=== PATIENT | female | born 1985 | race American Indian/Alaskan Native ===

== ENCOUNTER 2017-11-29 09:18 | Emergency (ER) | payer SELFPAY ==
[2017-11-29 10:01] LABS: Bilirubin,Urine NEG (Negative); Blood,Urine LG (Negative); Mucus,Urine 3+ /HPF
[2017-11-29 10:03] LABS: Color,Urine Yellow (Yellow); RBC,Urine > 182.0 /HPF (0.0-6.0)
[2017-11-29 10:14] LABS: Basophils % (Auto) 0.3 % (0.0-1.8); Eosinophils # (Auto) 0.2 K/mm3 (0.0-0.4); Eosinophils % (Auto) 2.4 % (0.0-4.3); Hematocrit 41.5 % (30.3-42.9); Hemoglobin 13.8 gm/dl (10.1-14.3); Lymphocytes # (Auto) 2.8 K/mm3 (1.2-5.4); Lymphocytes % (Auto) 31.4 % (13.4-35.0); Mean Corpuscular HGB Conc 33 % (30-34); Mean Corpuscular Hemoglobin 32 pg (28-32); Mean Corpuscular Volume 96 fl (79-97); Monocytes # (Auto) 0.9 K/mm3 (0.0-0.8); Monocytes % (Auto) 10.6 % (0.0-7.3); Platelet Count 332 K/mm3 (140-440); Red Blood Count 4.32 M/mm3 (3.65-5.03); Red Cell Distribution Width 12.7 % (13.2-15.2)
--- NOTE | 2017-11-29 10:56 | Emergency Department Report ---
Chief Complaint: Vaginal Bleeding Stated Complaint: VAGINAL BLEEDING/ Time Seen by Provider: 11/29/17 10:41 - HPI History of Present Illness: 31-year-old -[place] female presents to the emergency department with complaint of pelvic pain and vaginal bleeding and the patient believe she is . She took a home test in July that was positive. She says that she has a history of previous miscarriages and ectopics. She has been on vitamins. She did not have any [facility]IST follow-up between then and now. She denies any fever, vomiting, dysuria, vaginal discharge. No recent travel or sick contacts at home. - ROS Review of Systems: Positive for vaginal bleeding, pelvic discomfort Negative for nausea, vomiting, dysuria, vaginal discharge, fever - Exam Vital Signs: Vital Signs 11/29/17 09:20 Temperature 98.2 F Pulse Rate 80 Respiratory 18 Rate Blood Pressure 112/70 O2 Sat by Pulse 100 Oximetry Physical Exam: Heart and lungs sounds are normal to auscultation. There is some reproducible lower abdominal and pelvic discomfort to palpation. No guarding. MSE screening note: Focused history and physical exam performed. Due to findings the following was ordered: The patient will have a pelvic ultrasound. Labs have been reviewed and she has a negative beta hCG quantitative level. ED Medical Decision Making - Lab Data Result diagrams: 11/29/17 09:58 ED Disposition for MSE Condition: Stable Referrals: PRIMARY CARE [Primary Care Provider] - 3-5 Days
--- NOTE | 2017-11-29 11:48 | Emergency Department Report ---
ED HPI - General Chief complaint: Vaginal Bleeding Stated complaint: VAGINAL BLEEDING/ Time Seen by Provider: 11/29/17 10:41 Source: patient Mode of arrival: Ambulatory Limitations: No Limitations - History of Present Illness Initial comments: This is a 31-year-old female nontoxic, well nourished in appearance, no acute signs of distress presents to the ED with c/o of vaginal bleeding x1 day. Patient stated she had a positive test on 06/2017 and then had some minimal vaginal spotting on 07/2017. Patient stated yesterday she noticed vaginal bleeding today. Patient denies following up with BLOCK TRIMMER and stated has been taking vitamins. Patient stated has history of etopic of had right fallopian tube removed. Patient also stated has pelvic cramping that is intermittent. Patient denies any nausea, vomiting, chest pain, shortness of breathe, fever, chills, headache, stiff neck, numbness, tingling. Patient denies any urinary symptoms. Patient denies any allergies. PMH includes asthma. MD Complaint: vaginal bleeding -: days(s) (1) Location: pelvis Radiation: none Severity: mild Severity scale (0 -10): 3 Quality: cramping Consistency: intermittent, now resolved Improves with: none Worsens with: none Associated symptoms: vaginal bleeding. denies: nausea/vomiting, vaginal discharge, abdominal pain, dysuria, headache, vision changes, malaise, dysparuenia, rash, seizure, shortness of breath, syncope, weakness Vaginal bleeding: light Pre- care: none - Related Data Previous Rx's Medication Instructions Recorded Last Taken Type HYDROcodone/APAP 5-325 [[place] 1 each PO Q8HR PRN #20 tablet 05/27/14 Unknown Rx 5/325] Naproxen [Naprosyn TAB] 500 mg PO BID PRN #30 tablet 05/27/14 Unknown Rx Ibuprofen [Motrin] 600 mg PO Q8H PRN #30 tablet 11/29/17 Unknown Rx Allergies Allergy/AdvReac Type Severity Reaction Status Date / Time latex Allergy Rash Verified 11/29/17 09:28 ED Review of Systems ROS: Stated complaint: VAGINAL BLEEDING/ Other details as noted in HPI Constitutional: denies: chills, fever Eyes: denies: eye pain, eye discharge, vision change ENT: denies: ear pain, throat pain Respiratory: denies: cough, shortness of breath, wheezing Cardiovascular: denies: chest pain, palpitations Endocrine: no symptoms reported Gastrointestinal: abdominal pain. denies: nausea, diarrhea Genitourinary: denies: urgency, dysuria, discharge Musculoskeletal: denies: back pain, joint swelling, arthralgia Skin: denies: rash, lesions Neurological: denies: headache, weakness, paresthesias Psychiatric: denies: anxiety, depression Hematological/Lymphatic: denies: easy bleeding, easy bruising ED Past Medical Hx - Past Medical History Previous Medical History?: Yes Additional medical history: miscarriage, ectopic - Surgical History Past Surgical History?: Yes Additional Surgical History: ectopic - Social History Smoking Status: Current Some Day Smoker Substance Use Type: None - Medications Home Medications: Home Medications Medication Instructions Recorded Confirmed Last Taken Type HYDROcodone/APAP 5-325 [[place] 1 each PO Q8HR PRN #20 tablet 05/27/14 Unknown Rx 5/325] Naproxen [Naprosyn TAB] 500 mg PO BID PRN #30 tablet 05/27/14 Unknown Rx Ibuprofen [Motrin] 600 mg PO Q8H PRN #30 tablet 11/29/17 Unknown Rx ED Physical Exam - General Limitations: No Limitations General appearance: alert, in no apparent distress - Head Head exam: Present: atraumatic, normocephalic - Eye Eye exam: Present: normal appearance Pupils: Present: normal accommodation - ENT ENT exam: Present: normal exam, mucous membranes moist - Neck Neck exam: Present: normal inspection, full ROM. Absent: tenderness, meningismus, lymphadenopathy - Respiratory Respiratory exam: Present: normal lung sounds bilaterally. Absent: respiratory distress, wheezes, rales, rhonchi, stridor, chest wall tenderness, accessory muscle use, decreased breath sounds, prolonged expiratory - Cardiovascular Cardiovascular Exam: Present: regular rate, normal rhythm, normal heart sounds. Absent: bradycardia, tachycardia, irregular rhythm, systolic murmur, diastolic murmur, rubs, gallop - GI/Abdominal GI/Abdominal exam: Present: soft, normal bowel sounds. Absent: distended, tenderness, guarding, rebound, rigid, diminished bowel sounds - Expanded GI/Abdominal Exam Expanded GI/Abdominal exam: Absent: psoas sign, obturator sign, heel tap sign, Asher's sign, Rovsing's sign, tenderness at Mcburney's Point, ascites - Rectal Rectal exam: Present: deferred - Extremities Exam Extremities exam: Present: normal inspection, full ROM, normal capillary refill. Absent: tenderness - Back Exam Back exam: Present: normal inspection, full ROM. Absent: tenderness, CVA tenderness (R), CVA tenderness (L), muscle spasm, paraspinal tenderness, vertebral tenderness, rash noted - Neurological Exam Neurological exam: Present: alert, oriented X3, normal gait - Psychiatric Psychiatric exam: Present: normal affect, normal mood - Skin Skin exam: Present: warm, dry, intact, normal color. Absent: rash ED Course Vital Signs 11/29/17 11/29/17 09:20 11:02 Temperature 98.2 F Pulse Rate 80 Respiratory 18 16 Rate Blood Pressure 112/70 O2 Sat by Pulse 100 Oximetry - Reevaluation(s) Reevaluation #1: 11/29/17 11:48 Patient is speaking in full sentences with no signs of distress noted. - Consultations Consultation #1: Patient has been consulted with Dr. Olivares about patient history, physical exam, and labs/US report and examined and screened patient and agrees to ED plan of care and discharge plan of care. ED Medical Decision Making - Lab Data Result diagrams: 11/29/17 09:58 - Medical Decision Making This is a 31-year-old female presents with miscarriage. Patient is stable and was examined by me. Normal abdominal exam. US OB obtained and dictated by the radiologist. Quantative serum test obtained. Patient notified of the US of pelvic report with no questions noted by the patient. Patient refused US transvaginal even though I educated and instructed patient of possible risk factors such as torsion but patient still refused. RH factor positive. Labs within normal limits. Patient was referred to Follow-up with a BLOCK TRIMMER in 3-5 days or if symptoms worsen and continue return to emergency room as soon as possible. At time of discharge, the patient does not seem toxic or ill in appearance. No acute signs of distress noted. Patient agrees to discharge treatment plan of care. No further questions noted by the patient. Critical care attestation.: If time is entered above; I have spent that time in minutes in the direct care of this critically ill patient, excluding procedure time. ED Disposition Clinical Impression: Miscarriage Disposition: DC-01 TO HOME OR SELFCARE Is pt being admited?: No Does the pt Need Aspirin: No Condition: Stable Instructions: Spontaneous Miscarriage (ED) Additional Instructions: Follow-up with a BLOCK TRIMMER doctor in 3-5 days or if symptoms worsen and continue return to emergency room as soon as possible. Prescriptions: Ibuprofen [Motrin] 600 mg PO Q8H PRN #30 tablet PRN Reason: Pain Referrals: PRIMARY CAREMD [Primary Care Provider] - 3-5 Days MURIEL WAGNER MD [Staff Physician] - 3-5 Days [facility] [Provider Group] - 3-5 Days [facility] [Outside] - 3-5 Days [facility] [Outside] - 3-5 Days Forms: Work/School Release Form(ED)
--- NOTE | 2017-11-29 12:54 | Ultrasound Report ---
ULTRASOUND PELVIC COMPLETE HISTORY: pelvic pain . COMPARISON: none . TECHNIQUE: Transabdominal ultrasound with color doppler interrogation. FINDINGS: The uterus and ovaries are not visualize secondary to overlying bowel gas and poor distention of the bladder. There is no obvious pelvic mass, cyst or fluid collection. The patient refused transvaginal imaging. IMPRESSION: Essentially suboptimal transabdominal pelvic ultrasound. No obvious abnormality detected.
[2017-11-29 14:07] VITALS: BP 109/51
== END 2017-11-29 14:07 | disposition home or self-care (01) ==
LOC: ED 09:18
DX: O03.9 Complete or unspecified spontaneous abortion without complication (principal); F17.200 Nicotine dependence, unspecified, uncomplicated; Z91.040 Latex allergy status
CPT/HCPCS: 36415; 76856; 81001; 84702; 85025; 86850; 86900; 86901